=== PATIENT | male | born 1990 | race Caucasian/White ===

== ENCOUNTER 2023-02-06 11:11 | Emergency (ER) | payer BC, MEDICAID | END 2023-02-06 12:30 | disposition home or self-care (01) | LOC: JP.ED 11:11 | DX: S62.132A Displaced fracture of capitate [os magnum] bone, left wrist, initial encounter for closed fracture (principal); F17.290 Nicotine dependence, other tobacco product, uncomplicated; W22.8XXA Striking against or struck by other objects, initial encounter | CPT/HCPCS: 29125; 73110-26-LT; 73110-LT; 99283 ==